=== PATIENT | female | born 1955 | race Two or more races ===

== ENCOUNTER 2022-12-15 11:30 | Emergency (ER) | payer OTHER ==
[~2022-12-15] VITALS: Ht 160 cm; Wt 68.0 kg
[2022-12-15] MEDS ORDERED: ATORVASTATIN CA40 MG PO (11:41)
[2022-12-15] MEDS ORDERED: CYMBALTA20 MG PO (11:42)
[2022-12-15] MEDS ORDERED: SYNJARDY XR 121 EACH PO (11:43)
[2022-12-15] MEDS ORDERED: ZYNCOF 400-201 EACH PO (15:16)
[2022-12-15] MEDS ORDERED: NASAL MIST126 ML NASAL (15:16)
[2022-12-15] MEDS ORDERED: PAXLOVID 150-11 EACH PO (15:16)
[2022-12-15] MEDS ORDERED: MEDROLPACK PO (15:16)
== END 2022-12-15 15:24 | disposition home or self-care (01) ==
LOC: ER 11:30
DX: U07.1 COVID-19 (principal)